=== PATIENT | male | born 1980 | race Caucasian/White ===

== ENCOUNTER 2020-08-15 16:09 | Day surgery (SDC) | payer OTHER, SELFPAY ==
--- NOTE | 2020-08-15 16:06 | PCM.HP.BLA ---
History and Physical Date of Admission: 08/15/20 HISTORY AND PHYSICAL ? Ramakrishna Gunter 1980 ? ? REFERRING PHYSICIAN: Ramakrishna Mixon * ? CHIEF COMPLAINT: appendicitis ? HPI: The patient is a 40 year old male presents with abdominal pain since yesterday. States that it was a generalized aching queazy sensation but worsened. He has nausea, but at present feels hungry, he last ate this morning. He denies fevers. Denies previous history of these symptoms. Thus presented to urgent care clinic today. Evaluation revealed normal WBC, with normal differential. CT scan obtained - GI tract: No dilation or wall thickening. Dilated appendix which measures up to 1.4 cm in diameter. ?There is adjacent right lower quadrant fat stranding. Impression: acute appendicitis Of note, there is also adenopathy which can be followed in the future. ? ? PAST MEDICAL HISTORY Diagnosis Date ? Hyperlipidemia 10/06/2015 ? PAST SURGICAL HISTORY Procedure Laterality Date ? NONE ? ? PAST INJURIES Denies head injuries, had left femur fracture in past ? ? Current Outpatient Medications Medication Sig ? atorvastatin (LIPITOR) 40 mg tablet Take 1 tablet by mouth daily at bedtime. For cholesterol. ? multivitamin (ONE-A-DAY ESSENTIAL) tablet Take 1 tablet by mouth once daily. ? ? ALLERGIES: Patient has no known allergies. ? PERSONAL HISTORY: Social History ? Tobacco Use ? Smoking status: Former Smoker ? ? Years: 4.00 ? Smokeless tobacco: Never Used Substance Use Topics ? Alcohol use: Yes ? Drug use: No ? FAMILY HISTORY Problem Relation Age of Onset ? Hypertension Mother ? ? Heart Father ? ? Diabetes Paternal Grandmother ? ? ? REVIEW OF SYSTEMS: General - denies fevers, denies anorexia, denies weight loss Cardiovascular - denies chest pain, denies history of DE Pulmonary - denies shortness of breath, denies coughing up blood Gastrointestinal - denies abdominal pain, denies hematemesis, denies blood in stools Neurological - denies seizures, denies chronic numbness/weakness of extremities, denies chronic headaches Genitourinary - denies burning with urination, denies blood in urine Hematological - denies spontaneous/prolonged bleeding Skin - denies nonhealing skin wounds Musculoskeletal - no new muscle/bone pain Endocrine - denies diabetes, no thyroid problems Psychological ? denies hallucinations ? PHYSICAL EXAMINATION: General: The patient is 40 year old male, well nourished, well hydrated in no acute distress. The patient is oriented to time, place, and person. VITALS: BP 114/72 Pulse 72 ? Temp 37.2 ?C (99 ?F) ? Resp 18 ? Wt 82.1 kg (181 lb) ? SpO2 98% ? BMI 28.34 kg/m? Head ? Normocephalic. EOM intact with sclera clear and no icterus noted. Mouth with mucus membranes moist. Neck - supple with no jugular venous distention noted. Trachea is midline. Lungs ? clear to auscultation. Normal breath sounds. No rales/rhonchi/wheezing noted. No labored breathing noted, such as retractions. No cough heard. Heart ? normal S1 and S2 auscultated. No rubs/clicks/murmurs noted. Regular rate. Abdomen ? soft but tender in the right lower quadrant, decreased bowel sounds. No abdominal bruits noted. Extremities ? no calf tenderness noted. No pitting edema noted. Skin ? normal skin integrity. Neurological ? gait normal, no focal deficits noted. Psych ? calm and appropriate RADIOLOGIC STUDIES: As Noted ? ? IMPRESSION: right lower quadrant abdominal tenderness, abnormal CT scan ? PLAN: I have discussed the above with the patient. I have offered laparoscopic appendectomy I have explained the procedure to the patient. I have counseled the patient as to the risks of the procedure, including but not limited to: infection, bleeding, injury to any blood vessels/nerves, scar tissue, injury to any intrabdominal organs, injury to bowel/bladder, intraabdominal abscess/bleeding, hernias at incisional sites, wound infections, complications of anesthesia, etc. ? the patient understands. ? The patient was offered a surgery/procedure. The provider and patient have discussed in detail the risk of exposure to and/or potential harm posed by the COVID-19 virus with having a surgery/procedure at this time versus the risk of? delaying the surgery/procedure. It is not possible to know either the risk of delaying the surgery or procedure or chance of getting an infection with perfect accuracy, but a joint decision was made between the patient and the provider ?to proceed at this time with the scheduled surgery/procedure. ? The patient wishes to proceed. I have answered all questions to the patient?s satisfaction and the patient has no further questions. ? ? . Diagnoses: (R10.31) Right lower quadrant abdominal pain (primary encounter diagnosis) (R93.3) Abnormal CT scan, gastrointestinal tract Return to Clinic: The patient is instructed to follow-up with me after the procedure. ?
--- NOTE | 2020-08-15 16:30 | APP_PTH ---
PATIENT: BRIDGET HUTCHISON [place] [facility] [id number] AGE/SX: 40/M ROOM: RE08/15/[address]: Dr. Katherin Alcaraz MD : 1980 BED: DIS: 08/15/2020 SPEC #: [id number] RECD: 08/18/20 07:48 STATUS: DAVON HELEN #: [id number] DONNIE: 08/15/20 16:[address]: Katherin Alcaraz DEPT: SURGICAL PATHOLOGY RECD BY: Tierney Burns ENTERED: 08/18/20 10:53 SP TYPE: APPENDIX OTHR DR: Dr. Barrie Paredes MD Tissues: Appendix, NOS Procedures: Surgery Specimen Level III HEADER OPERATION: Laparoscopic appendectomy PRE-OP DIAGNOSIS: Acute appendicitis TISSUE SUBMITTED: Appendix MICROSCOPIC DIAGNOSIS Appendix, appendectomy: Acute appendicitis. AM:chacho 08/19/20 MICROSCOPIC DESCRIPTION Slides are reviewed. GROSS DESCRIPTION Received in fixative is one container labeled with the patient's name and designated appendix. The specimen consists of a vermiform appendix measuring 7 cm in length and varying in diameter from 0.6 to 1.5 cm. Sections show fecal material. No gross perforations are evident. Tankage Grinder Operator sections are submitted in one cassette. / AM:chacho 08/18/20 TC:2 [facility]: [id number]
[2020-08-15 16:33] VITALS: BP 125/90; PULSE 105; RESP 16; TEMP 36.8; O2SAT 98; BMI 28.1
[2020-08-15] MEDS: Bupiv/Epi 0.25% 30 ML Vial (17:55)
--- NOTE | 2020-08-15 18:02 | OP.PCM_ITS ---
Report of Operation Date of Procedure: 08/15/20 Pre-Operative Diagnosis: appendicitis Post-Operative Diagnosis: appendicitis not perforated Surgery/Procedure Performed:: laparoscopic appendectomy Description of Surgical Findings:: dilated, injected appendicitis - not perforated Type of Anesthesia:: General Anesthesiologist: Gill Sierra Specimen's removed: appendix Drains: none Estimated Blood Loss (mL): < 10 ml Fluids Replaced: 500 ml RL Description of Procedure: After informed consent was obtained, the patient was brought into the Operating Room. Appropriate time out protocol was followed. The patient was placed in the supine position on the operating table. The patient was then placed under general anesthesia by the anesthesia provider. The patient?s abdomen was then prepped with a sterile surgical skin preparation and sterile surgical drapes were placed. The infraumbilical skin fold was grasped with penetrating towel clamps and the skin and subcutaneous tissues were infiltrated with 0.25% marcaine with epinephrine. A incision was then made with a 15 blade scalpel. A Veress needle was then inserted into the intraabdominal cavity and checked to be in the proper position with a normal saline drop test. A CO2 pneumoperitoneum was then created. Once this was achieved, the Veress needle was removed and a 5 mm trocar was placed in its stead. A 5 mm laparoscope was then inserted into the trocar. Careful examination of the intraabdominal contents was then done. There was no evidence of injury to any internal organs from placement of the Veress needle or the trocar. Under direct visualization, a 12mm suprapubic trocar and a 5mm left lower quadrant trocar was then placed into the intraabdominal cavity. The skin and subcutaneous tissues at these sites were first infiltrated with 0.25% marcaine with epinephrine. Attention was then d irected to the right lower quadrant. The appendix was visualized. The appendix appeared enlarged/injected with surrounding inflammation of the surrounding mesentary of the appendix. The mesentery of the appendix was taken down by cauterizing the tissue from the free edge to the base of the appendix using the Harmonic scalpel. Once the base of the appendix was freed of surrounding tissues, then the linear gastrointestinal stapling device was brought into the abdominal cavity via the 12mm port and placed across the base of the appendix. The stapling device was fired, thus stapling across the base of the appendix and transecting it simultaneously. There was no evidence of perforation of the appendix. The pelvic cavity was vigorously irrigated with normal saline and all irrigant was aspirated out. The appendix was placed in an Endobag and this was brought out through the suprapubic trocar. The appendix was forwarded to Pathology for analysis. The appendiceal stump was carefully examined. There was no evidence of any active bleeding or fecal leakage. The surrounding tissues were also examined and there was no evidence of any active bleeding or fecal/bile leakage. The intraabdominal cavity was examined and there was no evidence of any further inflammation or tissue abnormality. The CO2 pneumoperitoneum was released and all trocars were removed intact. The suprapubic fascia was reapproximated with a figure-of-8 vicryl suture. All skin incisions were reapproximated with monocryl suture. Cavilon and steristrips were applied to reinforce skin closure and proper sterile dressings were placed. Sponge, needle, and instrument count were verified and correct at the time of skin closure. The patient was then extubated and brought to the Recovery Room in stable condition. - Complications none noted - Admit VTE Documentation VTE Present on Admission: Yes VTE Mechan Device Prophylaxis: SCD's
[2020-08-15 18:18] VITALS: BP 112/66; BP 125/90; PULSE 77; RESP 18; TEMP 37.1; O2SAT 97
--- NOTE | 2020-08-15 18:27 | DCINST_ITS ---
Discharge Diet: No Restrictions - drink plenty of fluids, avoid carbonated beverages for a couple of days as it may cause bloating and abdominal discomfort after surgery Discharge Activity: Return to Normal Activity, May not drive while taking narcotic pain medications. Return to work on:: 09/01/20 Lifting Restrictions: no lifting greater than 10 pounds for two weeks Call your doctor if your incision/area has: Continuous Slow Oozing, Foul Smelling Discharge Call your doctor if you observe: Fever of 101 or Higher Additional Instructions: Recommended pain control regimen - May take 600 mg ibuprofen (Motrin) and then in 3-4 hours, may take 650 mg acetaminophen (Tylenol), then in 3-4 hours may take 600 mg ibuprofen, then in 3- 4 hours may take 650 mg acetaminophen and so on for 2-3 days May take narcotic pain medication for pain that is not controlled by above and at night for comfort through the night Leave dressings in place May get dressings wet in shower - do not scrub in the area and pat dry Do not soak - no tub baths/swimming If dressing appears to be soiled/open at one end/no longer sealed - may remove dressing but leave site uncovered (do not replace with any type of dressing) - leave steristrips in place - may get wet but do not scrub in the area and pat dry Medications to take at Discharge Atorvastatin Calcium [Lipitor] 40 mg PO QHS 05/21/15 Cephalexin [Keflex] 500 mg PO Q6 10 Days capsule 05/21/15 Hydrocodone Bitart/Apap 5-325 [[place] 5MG-325MG] 1 tab PO Q8H PRN PRN 5 Days #15 tab 08/15/20 Allergies/Adverse Reactions: Allergies No Known Allergies Allergy (Verified 05/21/15 08:29) The following prescriptions were given: Hydrocodone Bitart/Apap 5-325 [[place] 5MG-325MG] 1 tab PO Q8H PRN PRN 5 Days #15 tab PRN Reason: Pain Score 4-10/10 Transmission Status: Received by [facility]/pharmacy #[id number] Primary Care Physician: Barrie Paredes MD [Primary Care Provider] - Test Results: Test results from this visit will be discussed in further detail at your follow- up appointment, if applicable. Please Follow Up With: Katherin Alcaraz MD - call When: to be seen in 7-10 days, please call for date and time, thank you
[2020-08-15 18:32] VITALS: BP 109/69; BP 125/90; PULSE 73; RESP 16; O2SAT 96
[2020-08-15 18:44] VITALS: BP 112/76; BP 125/90; PULSE 73; RESP 16; TEMP 37.7; O2SAT 94
[2020-08-15] MEDS: HYDROcodone Bitartrate/Apap 5/325 Tablet PO (19:01)
[2020-08-15] MEDS: Lactated Ringers 1,000 ML 75 ML IV (19:20)
[2020-08-15 19:46] VITALS: BP 121/69; BP 125/90; PULSE 77; RESP 16; TEMP 36.9; O2SAT 97
== END 2020-08-15 20:08 | disposition home or self-care (01) ==
LOC: SDC 16:14 → AC 16:15
PROVIDERS: PCP Family Medicine; Referring Provider Surgery; Visit Provider Surgery
PROC: 0DTJ4ZZ Resection of Appendix, Percutaneous Endoscopic Approach (ICD-10-PCS; CPT 44970; principal; 2020-08-15 16:10)
DX: K35.80 Unspecified acute appendicitis (principal); E11.9 Type 2 diabetes mellitus without complications; E78.5 Hyperlipidemia, unspecified; I10 Essential (primary) hypertension; Z79.899 Other long term (current) drug therapy; Z82.49 Family history of ischemic heart disease and other diseases of the circulatory system; Z87.891 Personal history of nicotine dependence; R93.3 Abnormal findings on diagnostic imaging of other parts of digestive tract; R10.31 Right lower quadrant pain
CPT/HCPCS: 00840; 44970; 88304; J7120; A4216; J2405